=== PATIENT | male | born 1940 | race Caucasian/White ===

== ENCOUNTER → 2018-03-17 00:10 | Outpatient (CLI) | payer MEDICARE, OTHER, SELFPAY ==
[2018-03-17] MEDS: Gadoterate meglumine 20 ML VIAL 14 ML IVP (10:44)
--- NOTE | 2018-03-17 11:00 | DI.REPORT_ITS ---
SYMPTOM/DIAGNOSIS: VISUAL HALLUCINATIONS R44.1, LOSS OF BALANCE R26.89 MRI BRAIN AND IAC: Routine pre and post contrast examination was performed. Comparison is 10/29/09 The ventricles and sulci are consistent with the patient's age. There is mild cerebral atrophy present. The T2 and Flair images show white matter hyperintensities most consistent with small vessel ischemic disease. The diffusion weighted images show no evidence of an acute infarct. No intracranial hemorrhages present. Following contrast administration, no enhancing lesions are identified. There is a flow void in the [place]. The visualized paranasal sinuses are clear. No mass or enhancing lesion is seen in the region of the internal auditory canals or cerebellar pontine angles. IMPRESSION: Cerebral atrophy and small vessel ischemic disease. Otherwise negative examination.
== END ==
PROVIDERS: PCP Internal Medicine; Visit Provider Internal Medicine
DX: R44.1 Visual hallucinations (principal); R26.89 Other abnormalities of gait and mobility; G31.1 Senile degeneration of brain, not elsewhere classified; I67.9 Cerebrovascular disease, unspecified
CPT/HCPCS: 70553

== ENCOUNTER → 2018-05-16 09:33 | Outpatient (BNVA) | payer MEDICARE, OTHER, SELFPAY | PROVIDERS: Visit Provider Psychiatry & Neurology Neurology | DX: R41.3 Other amnesia (principal); I95.1 Orthostatic hypotension; E11.40 Type 2 diabetes mellitus with diabetic neuropathy, unspecified; R26.9 Unspecified abnormalities of gait and mobility; R44.1 Visual hallucinations; Z79.84 Long term (current) use of oral hypoglycemic drugs | CPT/HCPCS: 99205 ==

== ENCOUNTER → 2018-07-18 12:15 | Outpatient (BNVA) | payer MEDICARE, OTHER, SELFPAY | PROVIDERS: PCP Internal Medicine; Visit Provider Psychiatry & Neurology Neurology | DX: I95.1 Orthostatic hypotension (principal); E11.40 Type 2 diabetes mellitus with diabetic neuropathy, unspecified; R44.1 Visual hallucinations; G31.84 Mild cognitive impairment of uncertain or unknown etiology; Z79.84 Long term (current) use of oral hypoglycemic drugs | CPT/HCPCS: 99214 ==